=== PATIENT | male | born 1945 | race Caucasian/White ===

== ENCOUNTER 2016-10-18 14:56 | Emergency (ER) | payer OTHER ==
[~2016-10-18] VITALS: Ht 198.1 cm; Wt 105.2 kg
[~2016-10-18 14:56] MED LIST: AMLODIPINE-BEN1 EAC2 PO; ARICEPT 5 MG TAB5 MG PO; B12INJ SUBQ; BACTRIM DS TAB1 EACH PO; BISACODYL SUPP10 MG RECTAL; CADUET 5 MG-101 EACH PO; CEFTRIAXONE2 G1 IVPB; CITRUCEL CAPLET1 TA1 PO; COLACE 100 MG100 MG PO; COUMADIN 5 MG TA5 M1 PO; ENOXAPARIN60 MG/0.1 SUBQ; ENOXAPARIN80 MG/0.1 SUBQ; FLOMAX0.4 MG PO; FOLIC ACID1 MG PO; HYDROCHLOROTHIA25 M2 PO; HYDROCODON-ACE1 EAC8 PO; INDAPAMIDE2.5 MG PO; LIPITOR 20 MG T20 M1 PO; MAG-AL PLUS SUS30 ML PO; MILK OF MA2400 MG/10 PO; MIRALAX255 GM PO; MOM PO; NORCO 10-325 T1 EACH PO; NORVASC5 MG PO; OXYCODONE HCL 55 MG PO; PROTONIX40 M1 PO; PROTONIX40 M4 PO; SENNA PO; TRAMADOL 50 MG50 MG PO; TRAZODONE 150150 M1 PO; TYLENOL325 MG PO; VITAMIN D 5050000 I1 PO; ZOLOFT50 MG PO
[2016-10-18 16:45] LABS: HEMOGLOBIN 13.5 gm/dL (14.0-18.0); MCH 31.3 pg (26.0-34.0); MCHC 34.6 g/dL (28.0-37.0); MCV 90.3 fL (80.0-100.0); RBC 4.32 mil/uL (4.50-6.00); RDW 13.6 % (10.5-14.5); WBC 4.8 thou/uL (4.0-11.0)
[2016-10-18 16:57] LABS: INR 1.8
[2016-10-18 16:59] LABS: CALCIUM 9.3 mg/dL (8.5-10.1); POTASSIUM 3.8 mmol/L (3.5-5.1)
[2016-10-18 17:04] LABS: TOTAL BILIRUBIN 1.3 mg/dL (<0.1-1.0); TOTAL PROTEIN 7.6 g/dL (6.4-8.2)
[2016-10-18 17:08] LABS: PROTIME 18.6 Seconds (9.3-11.4)
[2016-10-18] MEDS ORDERED: VITAMIN D250000 UNIT (19:02)
[2016-10-18] MEDS ORDERED: ENOXAPARIN80 MG/0.1 SUBQ (19:06)
[2016-10-18 19:07] VITALS: BP 126/72
== END 2016-10-18 19:09 | disposition home or self-care (01) ==
LOC: ER 14:56
PROVIDERS: Physician Assistant
DX: R04.2 Hemoptysis (principal); K21.9 Gastro-esophageal reflux disease without esophagitis; I10 Essential (primary) hypertension; F32.9 Major depressive disorder, single episode, unspecified; E78.00 Pure hypercholesterolemia, unspecified; F10.99 Alcohol use, unspecified with unspecified alcohol-induced disorder; F03.90 Unspecified dementia, unspecified severity, without behavioral disturbance, psychotic disturbance, mood disturbance, and anxiety; Z85.828 Personal history of other malignant neoplasm of skin; Z98.890 Other specified postprocedural states; Z86.73 Personal history of transient ischemic attack (TIA), and cerebral infarction without residual deficits; Z88.6 Allergy status to analgesic agent; Z91.048 Other nonmedicinal substance allergy status; Z88.8 Allergy status to other drugs, medicaments and biological substances; Z87.891 Personal history of nicotine dependence

== ENCOUNTER → 2016-10-20 | Outpatient (CLI) | payer OTHER ==
[~2016-10-20] VITALS: Ht 200.7 cm; Wt 105.2 kg
[~2016-10-20] MED LIST changes: +VITAMIN D250000 UNIT
--- NOTE | ~2016-10-20 | S ---
[facility] [place] [address] SURGICAL PATH RPT PROCEDURE Name: CAMPOS SEGAL [facility] MA[facility].#: [id number] Admission: 10/20/16 Date of : 47 Discharge: Report #: [id number] Path Case #: [id number] PATHOLOGY REPORT COLLECTION DATE: 10/20/2016 RECEIVED DATE: 10/20/2016 SUBMITTING PHYS: Dr. Sebas Devi OTHER PHYS: Dr. William Huerta SPECIMEN(S) RECEIVED: A.Bx of esophagus at 40 cm B.Bx of esophagus at 38 cm C.Bx of esophagus at 36cm D.Polyp at prox ascending colon * * * * * * * * * * * * FINAL DIAGNOSIS: A. Gastric cardia-type mucosa, esophagus at 40 cm, endoscopic biopsy: - Specialized columnar epithelium with intestinal metaplasia, consistent with Lauren's metaplasia; negative for dysplasia. B. Gastric cardia-type mucosa, esophagus at 38 cm, endoscopic biopsy: - Specialized columnar epithelium with intestinal metaplasia, consistent with Lauren's metaplasia; negative for dysplasia. - Mild acute esophagitis. C. Gastroesophageal mucosa, esophagus at 36 cm, endoscopic biopsy: - Specialized columnar epithelium with intestinal metaplasia, consistent with Lauren's metaplasia; negative for dysplasia. - Mild active esophagitis. D. Polyp, at proximal ascending colon, endoscopic biopsy: - Compatible with an inflammatory polyp with reactive hyperplastic changes and a lymphoid aggregate. (IUV:mgr; d/t: 10/22/16) PATHOLOGIST: Bianca Simpson M.D. REPORT ELECTRONICALLY SIGNED BY: Bianca Simpson M.D. DATE/TIME: 10/22/2016 14:31 * * * * * * * * * * * * GROSS PATHOLOGY: A. Received in formalin labeled "Campos Segal, BX of esophagus at 40 cm," are 3 segments of pan soft tissue measuring 1.0 x 0.3 x 0.2 cm in aggregate dimensions and ranging from 0.2 to 0.5 cm in maximum dimension. The specimen is submitted entirely in cassette A1. B. Received in formalin labeled "Campos Segal, BX of esophagus at 38 cm," are 3 segments of pan soft tissue measuring 1.2 x 0.2 x 0.2 cm in aggregate dimensions and ranging from 0.1 to 0.[address] [address] SURGICAL PATH RPT PROCEDURE Name: CAMPOS SEGAL [facility] [id number] Admission: 10/20/16 Date of : 47 Discharge: Report #: [id number] Path Case #: [id number] maximum dimension. The specimen is submitted entirely in cassette B1. C. Received in formalin labeled "Campos Segal, BX of esophagus at 36 cm," are 3 segments of pan soft tissue measuring 1.3 x 0.2 x 0.2 cm in aggregate dimensions and ranging from 0.2 to 0.6 cm in maximum dimension. The specimen is submitted entirely in cassette C1. D. Received in formalin labeled "Campos Segal, polyp at proximal ascending colon," is a segment of pan soft tissue measuring 0.4 x 0.3 x 0.2 cm in maximum dimension. The specimen is submitted entirely in cassette D1. (GEENA; 10/21/2016) CLINICAL HISTORY: History of Lauren's esophagus rule out dysplasia INITIAL CPT CODE(S): A; 16397 B; 00008 C; 89886 D; 73972 Professional services performed by [email or web address] at [facility] [address], [place] [address] Technical services performed by [email or web address] at [address] [place] [address], [address], [place] [address]. [facility] [address] [place] [address] PHONE: [phone] DIRECTOR: Jay Bonner M.D. * * * END OF REPORT * * *
[2016-10-20 12:07] LABS: INR 1.3; PROTIME 13.2 Seconds (9.3-11.4)
== END | disposition home or self-care (01) ==
LOC: GI 11:04
PROVIDERS: Internal Medicine Gastroenterology
DX: Z12.11 Encounter for screening for malignant neoplasm of colon (principal); K63.5 Polyp of colon; K57.30 Diverticulosis of large intestine without perforation or abscess without bleeding; K20.9 Esophagitis, unspecified; K21.9 Gastro-esophageal reflux disease without esophagitis; K44.9 Diaphragmatic hernia without obstruction or gangrene; I10 Essential (primary) hypertension; E78.00 Pure hypercholesterolemia, unspecified; G47.33 Obstructive sleep apnea (adult) (pediatric); N40.0 Benign prostatic hyperplasia without lower urinary tract symptoms; F32.9 Major depressive disorder, single episode, unspecified; F41.9 Anxiety disorder, unspecified; Z80.0 Family history of malignant neoplasm of digestive organs; Z87.891 Personal history of nicotine dependence; Z85.828 Personal history of other malignant neoplasm of skin; Z96.651 Presence of right artificial knee joint; Z86.73 Personal history of transient ischemic attack (TIA), and cerebral infarction without residual deficits; Z98.890 Other specified postprocedural states; Z88.8 Allergy status to other drugs, medicaments and biological substances; Z79.899 Other long term (current) drug therapy
CPT/HCPCS: 62110; 62900

== ENCOUNTER 2017-07-23 00:02 | Emergency (ER) | payer OTHER ==
[~2017-07-23] VITALS: Ht 200.7 cm; Wt 95.3 kg
[2017-07-23] MEDS ORDERED: COUMADIN 1MG TAB1 M1 PO (00:14)
[2017-07-23 01:28] LABS: INR 3.3; PROTIME 32.8 Seconds (9.3-11.4)
[2017-07-23 02:29] VITALS: BP 132/90
== END 2017-07-23 02:30 | disposition home or self-care (01) ==
LOC: ER 00:02
PROVIDERS: Emergency Medicine
DX: S09.90XA Unspecified injury of head, initial encounter (principal); I10 Essential (primary) hypertension; N40.0 Benign prostatic hyperplasia without lower urinary tract symptoms; E78.00 Pure hypercholesterolemia, unspecified; F03.90 Unspecified dementia, unspecified severity, without behavioral disturbance, psychotic disturbance, mood disturbance, and anxiety; K21.9 Gastro-esophageal reflux disease without esophagitis; Z87.891 Personal history of nicotine dependence; Z88.8 Allergy status to other drugs, medicaments and biological substances; W18.2XXA Fall in (into) shower or empty bathtub, initial encounter; Y93.89 Activity, other specified; Y92.89 Other specified places as the place of occurrence of the external cause; Y99.8 Other external cause status

== ENCOUNTER 2017-07-23 15:53 | Inpatient (IN) | payer OTHER ==
[~2017-07-23] VITALS: Ht 200.7 cm; Wt 95.3 kg
--- NOTE | ~2017-07-23 | HC ---
[facility] [place] [address] CONSULTATION Name: CATHYCAMPOS WU Room #: 411-P [facility]..#: [id number] Admission: 07/23/17 Attend Phys: Maximus Oh MD Discharge: Date of : 47 Report #: [id number] THIS REPORT FOR: //name// CC: Maximus Huerta CHIEF COMPLAINT: Left knee pain. HISTORY OF PRESENT ILLNESS: The patient is a pleasant 71-year-old male who was admitted through the Emergency Department at [facility] yesterday for complaints of left knee pain. The patient reports that he fell in his bathroom on 07/22/2017 and hit his head on the bathroom sink. He was seen in the Emergency Department that night for a head CT that was negative. Then, he reports that the following morning, he woke up with significant pain and swelling in the left knee. He believes he may have hit this knee as he fell in the bathroom. He denies any prior issues with the left knee in the past, although he does report a history of a right total knee arthroplasty with Dr. Bradford Jose 2-3 years ago. The patient complains of worse pain with ambulation. Pain is better with rest. He is a patient who was placed in a knee immobilizer in the Emergency Department and states this has been helpful to alleviate some of his pain with movement. He has had prior x-rays and CT scan of the left knee since being admitted. ALLERGIES: ADHESIVES, KETOROLAC AND HEPARIN. PAST MEDICAL HISTORY: Significant for recent closed head injury, anticoagulation currently on Coumadin. MEDICATIONS: Please see MAR for complete medical record, but includes Coumadin use at home. SOCIAL HISTORY: The patient reports that he lives at home and typically ambulates without assistance. PHYSICAL EXAMINATION: VITAL SIGNS: Temperature 36.4 degrees Celsius, blood pressure 133/88 and pulse rate 71. GENERAL: The patient is awake and alert, in no acute distress. EXTREMITIES: Left lower extremity is neurovascularly intact. Calf is soft, nontender. There is a 1+ knee effusion, significant pain with passive range of motion. Passive range of motion from 0-50 degrees. Tenderness to palpation of the medial and lateral joint lines. There is no tenderness to palpation to the proximal tibia or distal femur. Mild tenderness to palpation of the patellar tendon, patellar quadriceps tendon. There is positive medial and lateral Mayra's. IMAGING DATA: Three views of the left knee, performed on 07/23/2017, show a [address] [address] CONSULTATION Name: CAMPOS SEGAL Room #: 411-P [facility].#: [id number] Admission: 07/23/17 Attend Phys: Maximus Oh MD Discharge: Date of : 47 Report #: [id number] longitudinal lucency in the lateral tibial plateau seen on the frontal view, may represent a nondisplaced lateral tibial plateau fracture. Further evaluation of the left knee. CT scan is recommended. Moderate-sized left knee effusion. Chronic Miles-Stieda lesion. CT scan of the left knee performed on 07/23/2017 shows no acute fracture or dislocation of the left knee. Moderate-sized hemarthrosis of the left knee. If there is clinical concern for internal derangement of the knee, then further evaluation with an MRI is recommended. Chronic Miles-Stieda lesion. Mild tricompartmental osteoarthritis of the left knee. Severe fatty atrophy of the medial head of the gastrocnemius and soleus muscles, most likely sequelae of chronic denervation. IMPRESSION: Left knee pain. Hemarthrosis secondary to fall. Mild osteoarthritis and possible medial and lateral meniscus tears. PLAN: Discussed options with the patient, could include physical therapy, continued immobilization, ice and elevation, aspiration and injection of the left knee or possibly MRI. The patient reports that the knee swelling is very uncomfortable and he would like to proceed with an aspiration and injection of the left knee today. With more persistent symptoms, an MRI could be obtained for further evaluation, although the x-rays and CT scan were negative for a tibial plateau fracture. We will continue to follow the patient and if he fails to improve with the aspiration and injection, then an MRI could be obtained. After informed consent the knee was sterily prepped with chlorhexadine, 3 cc 1% lidocaine was used to numb the area, then 65cc of sangunious fluid was aspirated from the knee. Following the aspiration 40mg depo and 2 cc 1% lidocaine was injected into the knee. Following the aspiration the patient had improved knee pain and ROM. ROM following aspiration was 0-80. <ELECTRONICALLY SIGNED> By: MELIZA Connelly 07/25/17 0827 1133 1237 MELIZA Connelly /nt
[2017-07-23 15:53] VITALS: BP 135/65
[~2017-07-23 15:53] MED LIST changes: +COUMADIN 1MG TAB1 M1 PO
[2017-07-23 18:12] LABS: APTT 40.4 Seconds (24.5-32.8); INR 2.9; PROTIME 29.1 Seconds (9.3-11.4)
[2017-07-23 19:06] LABS: CALCIUM 8.7 mg/dL (8.5-10.1); CREATININE 0.8 mg/dL (0.7-1.3); POTASSIUM 3.6 mmol/L (3.5-5.1)
[2017-07-23 19:14] LABS: ALBUMIN 3.8 g/dL (3.4-5.0); TOTAL BILIRUBIN 1.4 mg/dL (<0.1-1.0); TOTAL PROTEIN 6.7 g/dL (6.4-8.2)
[2017-07-23 21:34] VITALS: BP 135/65
[2017-07-23 22:32] VITALS: BP 106/94
[2017-07-23 22:53] VITALS: BP 126/67
[2017-07-24 04:34] LABS: HEMATOCRIT 34.2 % (42.0-52.0); HEMOGLOBIN 11.9 gm/dL (14.0-18.0); MCH 29.8 pg (26.0-34.0); MCHC 34.8 g/dL (28.0-37.0); MCV 85.6 fL (80.0-100.0); RDW 14.3 % (10.5-14.5); WBC 3.9 thou/uL (4.0-11.0)
[2017-07-24 04:46] LABS: INR 2.8; PROTIME 27.9 Seconds (9.3-11.4)
[2017-07-24 04:52] LABS: CALCIUM 9.2 mg/dL (8.5-10.1); POTASSIUM 3.2 mmol/L (3.5-5.1)
[2017-07-24 04:59] VITALS: BP 127/68
[2017-07-24 09:22] VITALS: BP 133/88
[2017-07-24 20:00] VITALS: BP 129/80
[2017-07-25 04:00] VITALS: BP 129/79
[2017-07-25 06:00] LABS: HEMATOCRIT 34.3 % (42.0-52.0); HEMOGLOBIN 11.8 gm/dL (14.0-18.0); MCH 29.6 pg (26.0-34.0); MCHC 34.3 g/dL (28.0-37.0); MCV 86.4 fL (80.0-100.0); RBC 3.97 mil/uL (4.50-6.00); RDW 14.2 % (10.5-14.5); WBC 5.7 thou/uL (4.0-11.0)
[2017-07-25 06:23] LABS: ALBUMIN 3.6 g/dL (3.4-5.0); CALCIUM 9.1 mg/dL (8.5-10.1); CREATININE 0.8 mg/dL (0.7-1.3); POTASSIUM 3.8 mmol/L (3.5-5.1); TOTAL BILIRUBIN 1.1 mg/dL (<0.1-1.0); TOTAL PROTEIN 7.4 g/dL (6.4-8.2)
[2017-07-25 08:30] VITALS: BP 155/91
[2017-07-25 17:25] VITALS: BP 141/82
[2017-07-25 20:15] VITALS: BP 150/84
[2017-07-26 04:00] VITALS: BP 143/86
[2017-07-26 05:56] LABS: HEMOGLOBIN 12.1 gm/dL (14.0-18.0); MCH 29.2 pg (26.0-34.0); MCHC 33.7 g/dL (28.0-37.0); MCV 86.7 fL (80.0-100.0); RBC 4.16 mil/uL (4.50-6.00); RDW 14.1 % (10.5-14.5); WBC 5.1 thou/uL (4.0-11.0)
[2017-07-26 06:03] LABS: INR 1.8; PROTIME 18.1 Seconds (9.3-11.4)
[2017-07-26 06:14] LABS: ALBUMIN 3.7 g/dL (3.4-5.0); CALCIUM 9.4 mg/dL (8.5-10.1); CREATININE 0.9 mg/dL (0.7-1.3); POTASSIUM 3.4 mmol/L (3.5-5.1); TOTAL BILIRUBIN 1.2 mg/dL (<0.1-1.0); TOTAL PROTEIN 7.4 g/dL (6.4-8.2)
[2017-07-26 08:43] VITALS: BP 137/79
[2017-07-26] MEDS ORDERED: COUMADIN 1MG TAB1 M1 PO ×2 (16:50→17:06)
[2017-07-26 17:42] VITALS: BP 137/79
[2017-07-26] MEDS ORDERED: HYDROCODON-ACE1 EAC7 PO (17:48)
== END 2017-07-26 19:39 | disposition home or self-care (01) | DRG 813 ==
LOC: ER 15:53 → EROBS 21:14 → 4N 21:14
PROVIDERS: Emergency Medicine; Hospitalist; Nurse Practitioner Family
PROC: 0S9D3ZZ Drainage of Left Knee Joint, Percutaneous Approach (ICD-10-PCS; principal; 2017-07-26)
DX: D68.32 Hemorrhagic disorder due to extrinsic circulating anticoagulants (principal); M25.062 Hemarthrosis, left knee; T45.515A Adverse effect of anticoagulants, initial encounter; K21.9 Gastro-esophageal reflux disease without esophagitis; Z96.651 Presence of right artificial knee joint; I10 Essential (primary) hypertension; F32.9 Major depressive disorder, single episode, unspecified; F03.90 Unspecified dementia, unspecified severity, without behavioral disturbance, psychotic disturbance, mood disturbance, and anxiety; N40.0 Benign prostatic hyperplasia without lower urinary tract symptoms; E78.00 Pure hypercholesterolemia, unspecified; E87.6 Hypokalemia; D69.6 Thrombocytopenia, unspecified; M25.462 Effusion, left knee; G62.9 Polyneuropathy, unspecified; Z91.19 Patient's noncompliance with other medical treatment and regimen; Z88.8 Allergy status to other drugs, medicaments and biological substances; Z85.828 Personal history of other malignant neoplasm of skin; Z86.73 Personal history of transient ischemic attack (TIA), and cerebral infarction without residual deficits; Z87.891 Personal history of nicotine dependence; Z87.828 Personal history of other (healed) physical injury and trauma; Z86.718 Personal history of other venous thrombosis and embolism; Z86.711 Personal history of pulmonary embolism

== ENCOUNTER 2017-08-20 23:43 | Emergency (ER) | payer OTHER ==
[~2017-08-20] VITALS: Ht 198.1 cm; Wt 99.8 kg
[~2017-08-20 23:43] MED LIST changes: +HYDROCODON-ACE1 EAC7 PO
[2017-08-21 00:50] LABS: HEMATOCRIT 26.8 % (42.0-52.0); MCH 29.3 pg (26.0-34.0); MCHC 33.7 g/dL (28.0-37.0); RBC 3.08 mil/uL (4.50-6.00); WBC 5.2 thou/uL (4.0-11.0)
[2017-08-21 01:02] LABS: CALCIUM 8.5 mg/dL (8.5-10.1)
[2017-08-21 01:05] LABS: PROTIME 20.7 Seconds (9.3-11.4)
[2017-08-21 04:02] VITALS: BP 105/90
== END 2017-08-21 04:05 | disposition home or self-care (01) ==
LOC: ER 23:43
PROVIDERS: Emergency Medicine
DX: S09.90XA Unspecified injury of head, initial encounter (principal); F10.129 Alcohol abuse with intoxication, unspecified; I10 Essential (primary) hypertension; N40.0 Benign prostatic hyperplasia without lower urinary tract symptoms; K21.9 Gastro-esophageal reflux disease without esophagitis; E78.00 Pure hypercholesterolemia, unspecified; Z87.891 Personal history of nicotine dependence; Z88.8 Allergy status to other drugs, medicaments and biological substances; W07.XXXA Fall from chair, initial encounter; Y93.89 Activity, other specified; Y92.89 Other specified places as the place of occurrence of the external cause; Y99.8 Other external cause status

== ENCOUNTER 2017-08-30 16:25 | Emergency (ER) | payer OTHER ==
[~2017-08-30] VITALS: Ht 200.7 cm; Wt 101.2 kg
[2017-08-30] MEDS ORDERED: MIRALAX17 GM PO (18:48)
[2017-08-30 19:23] VITALS: BP 124/64
== END 2017-08-30 19:24 | disposition home or self-care (01) ==
LOC: ER 16:25
DX: K59.00 Constipation, unspecified (principal); K21.9 Gastro-esophageal reflux disease without esophagitis; I10 Essential (primary) hypertension; F32.9 Major depressive disorder, single episode, unspecified; N40.0 Benign prostatic hyperplasia without lower urinary tract symptoms; E78.00 Pure hypercholesterolemia, unspecified; G47.30 Sleep apnea, unspecified; Z96.651 Presence of right artificial knee joint; Z86.718 Personal history of other venous thrombosis and embolism; Z86.711 Personal history of pulmonary embolism; G60.9 Hereditary and idiopathic neuropathy, unspecified; Z88.8 Allergy status to other drugs, medicaments and biological substances; Z88.6 Allergy status to analgesic agent; Z87.891 Personal history of nicotine dependence

== ENCOUNTER 2020-01-30 18:12 | Inpatient (IN) | payer OTHER ==
[~2020-01-30] VITALS: Ht 198.1 cm; Wt 99.1 kg
[~2020-01-30 18:12] MED LIST changes: -NAMENDA 10 MG PO; -WARFARIN SODIUM5 MG PO
[2020-01-30 20:50] VITALS: BP 138/84
--- NOTE | 2020-01-31 00:59 | NUR ---
01-30-20 PT ARRIVED ON FLOOR 2047 - 2049 pt aaox1, sitting left arm b/p 138/84, p 77, r 16, t 97.9, 02 sat 94 RA RR EVEN AND NONLABORED ON RA, PT PRESENTS CONFUSION, BUT REMAINS CALM AND COOPERATIVE. PT MEDICAL HX OF HTN, GERD, HIGH CHOLESTEROL, PE/DVT. NO SKIN ISSUES NOTED, PT DENIES SI/HI AND PAIN. NO S/S OF ACUTE DISTRESS NOTED. PT HAS FULL ROM AND STEADY GAIT, PT REPORTS USE OF CANE. 2134 HCP Jared STYLES NP CONTACTED AND MESSAGE LEFT R/T NEW ADMIT, ROUTINE CONSULT. 2148 HCP Paulino GUZMAN NP CONTACTED AND ORDERS RECEIVED. 2199 RECEIVED CONSENT FROM DPOA JIM SEGAL VIA TELEPHONE, PER PT IS SELF SUFFICENT WITH ADL'S BUT DOES NEED REMINDERS ABOUT TAKING MEDICATION. LATER NOTED PT SUPINE IN BED RESTING WITH EYES CLOSED. PT WILL CONTINUE TO BE MONITOR PER [facility] PROTOCOL.
[2020-01-31 06:22] LABS: INR 1.4; PROTIME 14.1 Seconds (9.3-11.4)
[2020-01-31 08:56] VITALS: BP 135/63
--- NOTE | 2020-01-31 12:33 | NUR ---
REFUSED AM MEDS STATING "THOSE ARN'T MINE-IM LEAVING ILL TAKE MINE AT HOME" ORIENTED TO NAME ONLY-PACING IN HALLWAYS AND HAS BEEN GOING INTO OTHERS ROOMS LYING ON THEIR BEDS AND USING THEIR TOILET. PROVIDED WITH ROLLER WALKER PER MD INSTRUCTION-WILL USE IT OCCASSIONALLY WITH PROMPTING-GAIT IS STEADY WITHOUT ASSISTIVE DEVICE. WAS FOUND IN PEERS BATHROOM WITH PANTS OFF AND LARGE LOOSE BM PARTIALLY IN TOILET AND DOWN LEGS,ON WALL-TOILET AND BEDDING ON BOTH BEDS. ASSISTED IN CLEANING SELF AND DRESSING-BRIEF PLACED-SHORT TIME LATER NOTED TO HAVE BEEN INCONTINENT OF LARGE LOOSE STOOL IN BRIEF AND ON BACK OF PANTS-RESISITVE WITH GOING TO ROOM TO CHANGE INSISTING THAT HE HAD NOT HAD A BM. EATING WELL AT MEALS. DENIES C/O PAIN/DISCOMFORT
--- NOTE | 2020-01-31 13:53 | NUR ---
TAMY was able to complete the assessment with Pt's /DPOA, Nadege, in person. Nadege is the Pt primary oracle adf developer and some assistance from a neighbor. Nadege stated the PT was dx with dementia in 2016. Nadege stated she did not have any behavioral concerns with the Pt at this time. TAMY provided information on assisted living and respite services that may be avaliable to the couple. Nadege was unaware of respite care. Nadege also stated she has 2 sisters who can assist if needed. Nadege provided information on for her sisters and neighbor. Bety Thomas [phone] Oskar Ellis [phone] jhonathan Alan (neighbor) [phone],
--- NOTE | 2020-01-31 18:20 | NUR ---
HAS BEEN AMBULATING IN HALLWAYS AND IN DAYROOM STATING LOOKING FOR A "RIDE DOWNTOWN I NEED TO MEET MY " INTRUSIVE AT TIMES GOING INTO PEERS ROOM OR IN THEIR PERSONAL SPACE TO ASK SAME QUESTIONS" DIFFICULT TO REDIRECT AT TIMES. APPETITE GOOD. DENIES PAIN/DISCOMFORT. DID TAKE 1800 COUMADIN WITH PROMPTING AND ENCOURAGEMENT-ALTHOUGH STATES "THAT IS TOO MANY" REMAINS HIGH FALLS RISK D/T IMPULSIVE BEHAVIOR,UNSTEADY GAIT
[2020-01-31 19:23] VITALS: BP 132/70
[2020-01-31 21:27] VITALS: BP 132/70
--- NOTE | 2020-02-01 04:54 | NUR ---
Assumed care of patient this pm shift. Patient in good spirits, friendly. Patient is alert and oriented to person and place. Patients affect is blunted. Patient takes medications whole with thin fluids. Patient is ambulatory and has a even gait. Patients assessment shows no signs of acute distress. Patient has slept well and is currently sleeping. Patient is incontinent and needs assist x1 for toileting. We will continue to monitor per hospital policy.
[2020-02-01 06:14] LABS: INR 1.3; PROTIME 13.8 Seconds (9.3-11.4)
[2020-02-01 09:04] VITALS: BP 130/82
--- NOTE | 2020-02-01 11:10 | NUR ---
REFUSED 0900 MEDICATIONS THIS AM INSISTING THAT HE HAD ALREADY TAKEN THEM-REAPPROACHED X 3 AND BY DIFFERENT STAFF BUT CONTINUES TO REFUSE. AMBULATES IN HALLWAYS AND GAIT IS STEADY OFFERED ROLLER WALKER BUT REFUSES TO USE. STAYED IN AM RT GROUP FOR APPROX 2-3 MINUTES BEFORE GETTING UP TO WANDER IN HALLWAY. DID EAT BREAKFAST AND WAS ABLE TO FEED SELF. DENIES Pin/discomfort DURING AM ASSESSMENT. DENIES SI/SH/HI. FULL RANGE AFFECT-CONVERSATION FRAGMENTED-INCOHERENT AT TIMES. WHEN ASKED WHERE HE WAS CURRENTLY STATES "[facility]"
[2020-02-01] MEDS ORDERED: WARFARIN SODIUM5 MG PO ×2 (11:50)
[2020-02-01] MEDS ORDERED: NAMENDA 10 MG PO (11:53)
[2020-02-01 12:06] VITALS: BP 130/82
--- NOTE | 2020-02-01 13:07 | NUR ---
SW provided a lisiting of Home Health that provide in home respite to the Pt's .
--- NOTE | 2020-02-01 16:23 | NUR ---
INCONTINENT OF STOOL-WAS RESISTIVE WITH INCONTINENT/SKIN CARE INSISTING THAT HE HAD NOT HAD BM-NOTED TO HAVE LARGE AREA OF EXCORIATION TO RETUM/ANUS AREA-CLEANSED WITH ALOE SPRAY,DRIED AND BARRIER CREAM APPLIED.
--- NOTE | 2020-02-01 18:01 | NUR ---
TAMY spoke to the Pt's /DPOA concerning a neighbor being able to molded goods spot picker the Pt and care for him while she was in the hospital. Mrs. Conklin stated the neighbor was unable to care for the Pt at this time. TAMY encouraged Mrs. Conklin to contact her sister to plan for care of the Pt. Also to start looking into home health to assist with respite and other services in the home.
[2020-02-01 19:30] VITALS: BP 114/61
[2020-02-02 05:41] LABS: INR 1.4; PROTIME 14.8 Seconds (9.3-11.4)
--- NOTE | 2020-02-02 05:50 | NUR ---
Assumed care of pt @ 1900. Pt calm et cooperative with pleasant demeanor. Took medications whole without difficulty. Ambulates the halls ad keiry with steady gait. VSWNL. Health assessment with no abnormalities at present time. Denies any SI/HI/AH/VH at present time. Socilaized with peers in dayroom until HS. Currently resting in bed with eyes closed. Will continue to monitor per protocol.
[2020-02-02 07:26] VITALS: BP 125/80
[2020-02-02 08:20] VITALS: BP 125/80
--- NOTE | 2020-02-02 12:21 | NUR ---
PATIENT WAS UP, SITTING IN BED WHEN CARE ASSUMED THIS MORNING. PATIENT IS ALERT, FORGETFUL, WITH PERIODS OF CONFUSION. PATIENT TOOK MORNING MEDICATION WHOLE WITH LOTS OF ENCOURAGEMENT. PATIENT AMBULATES WITH SLOW STEADY GAIT. PATIENT IS EATING MEALS, AND DRINKING FLUID WELL. PATIENT DENIES SUICIDAL/HOMICIDAL IDEATION, NOT ABLE TO APPROPRIATELY RESPOND TO FURTHER ASSESSMENT QUESTIONS DUE TO COGNITIVE IMPAIREMENT. NO SIGN OF ACUTE DISTRESS NOTED AT THIS TIME. PATIENT IS BEING DISCHARGED HOME BEACUSE IS DICHARGING FROM HOSPITAL TODAY.
--- NOTE | 2020-02-04 17:23 | H ---
[facility] [place] [address] HISTORY AND PHYSICAL Name: CAMPOS SEGAL Room #: 526B-B [facility] IN M.R.#: [id number] Admission: 01/30/20 Attend Phys: Jeromy Block DO Discharge: 02/02/20 Date of : 47 Report #: [id number] THIS REPORT FOR: cc: William Huerta MD,William Block,Jeromy Dominique DO ~ CC: Jeromy Huerta DATE OF SERVICE: 01/31/2020 INPATIENT PSYCHIATRIC EVALUATION ATTENDING PSYCHIATRIST: Jeromy Block DO. CITY ADMINISTRATOR: Kiki Jaimes and her hospitalist, which is Maximus Oh MD SOURCES OF INFORMATION: Interview with the patient, Emergency Room notes; information from my student, nurse practitioner. REASON FOR ADMISSION: Confusion, history of major neurocognitive disorder, care failure as his who is his caregiver has to be emergently hospitalized. HISTORY OF PRESENT ILLNESS: This is a 74-year-old male, clearly dealing with dementia. The patient presented with his on 01/30/2020 to the Emergency Room in [facility]. The had to be admitted for AFib with RVR to our CCU. She was unwilling to be admitted unless provisions could be made to care for him. I was asked by the Emergency Room and hospital administration to care for the patient, which I agreed to. 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 Another point of confusion was the hospital is currently having COVID-19 precautions and visitors are not allowed to remain in the rooms. The patient denied symptoms including denying suicidal or homicidal ideation; auditory, visual, or tactile hallucinations; nightmares; flashbacks. He is grossly amnestic both short and long-term, unable to answer any material questions including medical history; therefore, geriatric social work professor and treatment team down the CCU to visit with him. He did refuse a.m. medications. Denied past psychiatric hospitalizations. He is on memantine 10 mg p.o. b.i.d. and sertraline 100 mg p.o. daily. 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 Denied learning disabilities and such. FAMILY HISTORY: Denied history of psychiatric medical conditions. The patient's primary care physician is unknown. He does have a history of [facility] [address] [place] [address] HISTORY AND PHYSICAL Name: CAMPOS SEGAL Room #: 526B-B [facility] IN [facility].#: [id number] Admission: 01/30/20 Attend Phys: Jeromy Block, DO Discharge: 02/02/20 Date of : 47 Report #: [id number] obstructive sleep apnea, noncompliant with CPAP. PAST SURGICAL HISTORY: Includes right total knee replacement, back surgery, lumbar herniated disks in 1986 x 2, and history of testicular surgery. They may have been unable to have children because of this. He has a history of multiple head injuries. He is never seen for this medically. HOME MEDICATIONS: Warfarin, atorvastatin, sertraline, memantine, lisinopril, amlodipine, pantoprazole, hydrochlorothiazide, ondansetron. ALLERGIES: ADHESIVE TAPE, KETOROLAC, HEPARIN. SOCIAL HISTORY: Denies alcohol use; however, in 2019, his blood alcohol level was 298, had a fall. Former smoker, quit greater than 1 year ago. Denies gambling. for 45 years. No children. He has a history in the [employer], combat service in [place]. LABORATORY DATA: From the ER yesterday, hematology: H and H 12.7 and 30.3, white count 4.7, platelet count 130. Coags: PT 14.1, INR 1.4, aPTT 40.4. I doubt that he has been compliant and getting warfarin at home. Additional information, sodium 142, potassium 3.7, chloride 104, bicarbonate 27, anion gap 11, BUN 25, creatinine 1.1, estimated GFR 66, glucose 121, calcium 8.9, total bilirubin 1.3, AST 27, ALT 31, alkaline phosphatase 88, total protein 7.4, albumin 4.1. Urinalysis negative. UDS was not performed yesterday. COVID-19 PCR was negative. PHYSICAL EXAMINATION: VITAL SIGNS: Today, temperature 36.2, pulse 73, respirations 20, BP 135/63, O2 sat 99%. MUSCULOSKELETAL: Normal gait. Kyphotic. MENTAL STATUS EXAMINATION: This is a well-developed, tall, somewhat ill-appearing male, appearing at least stated age. Attention limited. Concentration impaired. Speech slow. Normal volume and tone. Thought Process: Linear. Limited thought content. Poor awareness of being on the Psychiatric Unit, exit seeking at times. Variable answers whether things are okay or not. Denied suicidal or homicidal ideations, auditory, visual, or tactile hallucinations. Memory is impaired, as cannot remeber interaction in ER with me from prior day. . Insight impaired. Judgment impaired. Fund of knowledge well below average. Mood and affect were congruent, constricted. FORMULATION: A 74-year-old male admitted through the ER for self-care failure due to 's medical emergency, history of dementia. [facility] [place] [address] HISTORY AND PHYSICAL Name: CAMPOS SEGAL Room #: 526B-B [facility] IN M.R.#: [id number] Admission: 01/30/20 Attend Phys: Jeromy Block DO Discharge: 02/02/20 Date of : 47 Report #: [id number] DIAGNOSES: Major neurocognitive disorder, likely due to Alzheimer's disease versus traumatic brain injury with behavioral disturbance, stable. OTHER ASSESSMENTS: Include medical morbidities such as on anticoagulation, history of DVTs, hypertension. PLAN: Evaluate, stabilize, obtain collateral, likely admission for only a few days. CURRENT MEDICATIONS: Warfarin 5 mg Wednesday, Wednesday, and Wednesday; atorvastatin 5 mg at bedtime; warfarin 7.5 mg Wednesday, Wednesday, Wednesday, Wednesday; sertraline 100 mg p.o. daily; memantine 10 mg p.o. b.i.d.; lisinopril 10 mg p.o. daily; amlodipine 5 mg p.o. daily; pantoprazole 40 mg p.o. daily; and hydrochlorothiazide 25 mg p.o. daily. Otherwise, house PRNs. ESTIMATED LENGTH OF STAY: 2-4 days. I will recommend the patient have 24/ attending care. states that her sister will be coming in to assist with that. She does not want to place him under care at this time. STRENGTHS: He is insured, has friends and family support. WEAKNESSES: Advancing dementia, being medically ill. <ELECTRONICALLY SIGNED> By: Jeromy Block, 02/04/20 1723 1720 1840 Jeromy Block, /nt
== END 2020-02-02 12:54 | disposition home or self-care (01) | DRG 884 ==
LOC: SBH 18:12
PROVIDERS: Nurse Practitioner; Nurse Practitioner Family; ADMIT Psychiatry & Neurology Psychiatry; ATTEND Psychiatry & Neurology Psychiatry
DX: F03.90 Unspecified dementia, unspecified severity, without behavioral disturbance, psychotic disturbance, mood disturbance, and anxiety (principal); F01.50 Vascular dementia, unspecified severity, without behavioral disturbance, psychotic disturbance, mood disturbance, and anxiety; Z96.651 Presence of right artificial knee joint; I10 Essential (primary) hypertension; E78.5 Hyperlipidemia, unspecified; F32.9 Major depressive disorder, single episode, unspecified; E78.00 Pure hypercholesterolemia, unspecified; G60.9 Hereditary and idiopathic neuropathy, unspecified; K21.9 Gastro-esophageal reflux disease without esophagitis; N40.0 Benign prostatic hyperplasia without lower urinary tract symptoms; G47.33 Obstructive sleep apnea (adult) (pediatric); Z88.8 Allergy status to other drugs, medicaments and biological substances; Z86.718 Personal history of other venous thrombosis and embolism; Z86.711 Personal history of pulmonary embolism; Z86.73 Personal history of transient ischemic attack (TIA), and cerebral infarction without residual deficits; Z87.891 Personal history of nicotine dependence
CPT/HCPCS: 10880

== ENCOUNTER → 2020-01-30 | Emergency (ER) | payer OTHER ==
[~2020-01-30] VITALS: Ht 198.1 cm; Wt 100.3 kg
[~2020-01-30] MED LIST changes: +MIRALAX17 GM PO; +NAMENDA 10 MG PO; +WARFARIN SODIUM5 MG PO
[2020-01-30 14:11] LABS: HEMOGLOBIN 12.7 gm/dL (14.0-18.0); MCH 31.6 pg (26.0-34.0); MCHC 34.4 g/dL (28.0-37.0); MCV 91.9 fL (80.0-100.0); RBC 4.02 mil/uL (4.50-6.00); RDW 13.3 % (10.5-14.5); WBC 4.7 thou/uL (4.0-11.0)
[2020-01-30 14:24] LABS: CALCIUM 8.9 mg/dL (8.5-10.1); CREATININE 1.1 mg/dL (0.7-1.3); POTASSIUM 3.7 mmol/L (3.5-5.1)
[2020-01-30 14:31] LABS: ALBUMIN 4.1 g/dL (3.4-5.0); TOTAL BILIRUBIN 1.3 mg/dL (0.2-1.0); TOTAL PROTEIN 7.4 g/dL (6.4-8.2)
--- NOTE | 2020-01-30 20:10 | NUR ---
ALTERED MENTAL STATUS PATIENT FOUND WANDERING INTO ANOTHER ROOM AND ASSISTED BACK INTO THE APPROPRIATE ROOM
--- NOTE | 2020-01-31 08:51 | EKG ---
[facility] [place] [address] ELECTROCARDIOGRAM REPORT Name: CAMPOS SEGAL Room #: REG [facility]#: [id number] Admission: 01/30/20 Attend Phys: Discharge: Date of : 47 Report #: [id number] THIS REPORT FOR: cc: William Huerta MD, Thomas P. MD Lundgren, Craig H. MD 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 01/31/20 0851 1818 17 Tod Osorio MD, FACC /EPI
== END ==
LOC: ER 12:03 → EROBS 17:30
PROVIDERS: Emergency Medicine
DX: R41.0 Disorientation, unspecified (principal); Z20.828 Contact with and (suspected) exposure to other viral communicable diseases; F03.90 Unspecified dementia, unspecified severity, without behavioral disturbance, psychotic disturbance, mood disturbance, and anxiety; K21.9 Gastro-esophageal reflux disease without esophagitis; I10 Essential (primary) hypertension; E78.00 Pure hypercholesterolemia, unspecified; Z88.8 Allergy status to other drugs, medicaments and biological substances; Z88.6 Allergy status to analgesic agent; Z87.891 Personal history of nicotine dependence; Z79.899 Other long term (current) drug therapy; Z86.73 Personal history of transient ischemic attack (TIA), and cerebral infarction without residual deficits; Z96.651 Presence of right artificial knee joint; Z79.01 Long term (current) use of anticoagulants; Z86.711 Personal history of pulmonary embolism; Z86.718 Personal history of other venous thrombosis and embolism